=== PATIENT | female | born 1965 | race Caucasian/White ===

== ENCOUNTER 2019-03-04 09:09 | Emergency (ER) | payer BC ==
[~2019-03-04] VITALS: Ht 172.7 cm; Wt 171.5 kg
[~2019-03-04 09:09] MED LIST: DIALYVITE 8000.8 MG SL; LISINOPRIL-HCT1 EAC2 PO; POTASSIUM99 M1 PO; REQUIP5 MG PO; VITAMIN D-32000 UNIT PO
--- NOTE | 2019-03-04 09:59 | Diagnostic Imaging Report ---
EXAMINATION: CXR 2 VIEW - HOPD INDICATION: Right-sided chest pain. COMPARISON: None FINDINGS: TUBES and LINES: None. LUNGS: Lungs are well inflated. Lungs are clear. There is no evidence of pneumonia or pulmonary edema. PLEURA: No pleural effusion or pneumothorax. HEART AND MEDIASTINUM: The cardiomediastinal silhouette is unremarkable. BONES AND SOFT TISSUES: There is diffuse osteopenia. There is mild anterior loss of vertebral body height in a lower thoracic vertebral body. UPPER ABDOMEN: No free air under the diaphragm. IMPRESSION: Clear lungs. No evidence of pneumothorax. Diffuse osteopenia. Mild age indeterminate loss of vertebral body height in a lower thoracic vertebral body. Signed by: Dr. Lawrence Farrar MD on 03/04/2019 9:56 AM
--- NOTE | 2019-03-04 10:45 | NUR ---
PT RESTING, VITAL SIGNS STABLE, PT TO HAVE CARDIACS DRAWN AT 1400. PT AWARE OF POC. PT VOICES NO COMPLAINTS AT THIS TIME
--- NOTE | 2019-03-04 12:34 | NUR ---
PT RESTING, VITAL SIGNS STABLE, PT VOICES NO COMPLAINTS AT THIS TIME.
[2019-03-04 14:06] VITALS: BP 128/67
== END 2019-03-04 14:19 | disposition home or self-care (01) ==
LOC: FSED 09:09
DX: R07.89 Other chest pain (principal); I10 Essential (primary) hypertension; E11.9 Type 2 diabetes mellitus without complications; K21.9 Gastro-esophageal reflux disease without esophagitis; E66.9 Obesity, unspecified; F17.210 Nicotine dependence, cigarettes, uncomplicated
CPT/HCPCS: 71046; 80053; 81003; 82553; 84484; 85025; 85379; 99284